=== PATIENT | male | born 1995 | race Caucasian/White ===

== ENCOUNTER 2017-07-12 21:30 | Emergency (ER) | payer OTHER ==
[~2017-07-12] VITALS: Ht 188 cm; Wt 68.0 kg
--- NOTE | ~2017-07-12 | EKG ---
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
[~2017-07-12 21:30] MED LIST: AUGMENTIN 875875 MG PO; IBUPROFEN 800800 MG PO
[2017-07-12 21:32] VITALS: BP 141/81
== END 2017-07-12 21:51 | disposition home or self-care (01) ==
LOC: ER 21:30
DX: F15.10 Other stimulant abuse, uncomplicated (principal)

== ENCOUNTER 2018-10-17 14:56 | Emergency (ER) | payer OTHER ==
[~2018-10-17] VITALS: Ht 190.5 cm; Wt 68.0 kg
[2018-10-17] MEDS ORDERED: PROZAC20 MG PO (16:24)
[2018-10-17 17:05] VITALS: BP 108/74
[2018-10-23] MEDS ORDERED: PROZAC20 MG PO (13:50)
== END 2018-10-17 17:06 | disposition home or self-care (01) ==
LOC: ER 14:56
DX: I72.8 Aneurysm of other specified arteries (principal); F17.210 Nicotine dependence, cigarettes, uncomplicated

== ENCOUNTER 2018-11-02 05:27 | Day surgery (SDC) | payer OTHER ==
[2018-10-24 10:22] LABS: ABSOLUTE NEUTROPHILS 6.1 thou/uL (1.4-8.2); BASOPHILS 0.7 % (0.0-2.0); HEMATOCRIT 46.7 % (42.0-52.0); HEMOGLOBIN 16.1 gm/dL (14.0-18.0); LYMPHOCYTES 19.6 % (24.0-44.0); MCHC 34.5 g/dL (28.0-37.0); MCV 86.9 fL (80.0-100.0); MONOCYTES 9.1 % (1.0-8.0); PLATELET COUNT 305 thou/uL (150-400); POLYS 69.6 % (36.0-66.0); RBC 5.38 mil/uL (4.50-6.00); RDW 13.3 % (10.5-14.5); WBC 8.8 thou/uL (4.0-11.0)
[2018-10-24 10:25] LABS: URINE BILIRUBIN NEGATIVE (Negative); URINE BLOOD NEGATIVE (Negative); URINE CLARITY CLEAR; URINE COLOR YELLOW; URINE GLUCOSE-RANDOM* NEGATIVE (Negative); URINE KETONES NEGATIVE (Negative); URINE LEUKOCYTES-REFLEX NEGATIVE (Negative); URINE NITRITE-REFLEX NEGATIVE (Negative); URINE PROTEIN (DIPSTICK) NEGATIVE (Negative); URINE UROBILINOGEN 0.2 E.U./dl (0.2-1.0)
[2018-10-24 10:36] LABS: APTT 40.2 Seconds (24.5-32.8); PROTIME 10.2 Seconds (9.3-11.4)
[2018-10-24 10:43] LABS: ALBUMIN 4.3 g/dL (3.4-5.0); CALCIUM 10.7 mg/dL (8.5-10.1); CREATININE 0.9 mg/dL (0.7-1.3); POTASSIUM 4.4 mmol/L (3.5-5.1); TOTAL BILIRUBIN 0.4 mg/dL (<0.1-1.0); TOTAL PROTEIN 8.4 g/dL (6.4-8.2)
[2018-10-24 17:10] LABS: HAV IgM AB (ANTI-HAV IgM) Negative (Negative); HEPATITIS B SURFACE AG Negative (Negative); HEPATITIS C VIRUS AB <0.1 (0.0-0.9); HIV ANTIBODY Non Reactive (Non Reactive)
--- NOTE | 2018-10-24 17:30 | EKG ---
[address] [address] [address] [address] [address] ELECTROCARDIOGRAM REPORT Name: BREEZY MORALES Room #: PRE [facility]..#: [id number] ������������������ Admission: ������������������ Attend Phys: Zen Sal MD Discharge: ������������������ Date of : [birth year] Report #: [id number] ����������������������������������������������������������������� [id number] THIS REPORT FOR: //name// [facility] Test Date: 2018-10-24 Test Time: 10:07:44 Pat Name: BREEZY MORALES Department: Room: Gender: M Lofter: SEAN BOWENS : 1995 Requested By: Zen Sal Order Number: [id number] MD: Neto Morales Measurements Intervals [place] Rate: 70 P: 49 MN: 150 QRS: 72 QRSD: 93 T: 50 QT: 384 QTc: 415 Interpretive Statements Sinus rhythm ST elevation suggests early repolarization Compared to ECG 07/12/2017 21:41:34 No significant changes Electronically Signed On 10-24-2018 17:29:56 PHYSICAL THERAPY AID by Neto Morales [email or web address] ��������������������������������������������� <ELECTRONICALLY SIGNED> ���������������������������������������� By: Neto Morales MD, [facility] ��������������������������������������������� 10/24/18 1729 1007 [facility] Neto Morales MD, FACC /EPI
[~2018-11-02] VITALS: Ht 190.5 cm; Wt 67.1 kg
--- NOTE | ~2018-11-02 | O ---
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 OPERATION: Excision of posttraumatic temporal artery aneurysms (x2). SURGEON: Zen Sal MD ANESTHESIA: General. INDICATIONS: The patient is a 23-year-old who sustained blunt head trauma. The aftermath of this was that he had development of two distinct temporal artery aneurysms. These have been growing and bothersome to the patient and merit excision. FINDINGS AND TECHNIQUE: After general anesthesia was established, an incision was made over each of the temporal artery aneurysms. The aneurysms were dissected free of the soft tissue. The vessels feeding the aneurysm were ligated and the aneurysms were excised. Hemostasis was ascertained. A total of 2 aneurysms were removed from two separate incisions using the same technique. When hemostasis was satisfactory, each of the wounds was closed with subcuticular Monocryl. Dermabond was applied. The patient tolerated the procedure well and was taken to the recovery area with the expectation that he would be discharged when stable postanesthesia. ��������������������������������������������� ���������������������������������������� By: ��������������������������������������������� 1448 1918 Zen Sal MD /nt
[~2018-11-02 05:27] MED LIST changes: +PROZAC20 MG PO
[2018-11-02 06:32] VITALS: BP 117/71
[2018-11-02 09:36] VITALS: BP 117/71
== END 2018-11-02 10:25 | disposition home or self-care (01) ==
LOC: OR 05:27 → TBA 05:28 → OR 05:35
PROVIDERS: Surgery Vascular Surgery
DX: I72.8 Aneurysm of other specified arteries (principal); F32.9 Major depressive disorder, single episode, unspecified; F17.210 Nicotine dependence, cigarettes, uncomplicated; F15.20 Other stimulant dependence, uncomplicated; Z98.890 Other specified postprocedural states; Z79.899 Other long term (current) drug therapy; Z79.01 Long term (current) use of anticoagulants
CPT/HCPCS: 48888; 50010; 50101; 50386; 50417; 54118; 56524; 56526; 62110; 62900; 65040; 70005

== ENCOUNTER 2020-08-25 19:23 | Emergency (ER) | payer OTHER ==
[~2020-08-25] VITALS: Ht 190.5 cm; Wt 63.5 kg
[2020-08-25 19:27] VITALS: BP 139/74
--- NOTE | 2020-08-26 07:31 | EKG ---
[place] [address] [address] 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 : 1995 Requested By: Jose Hameed Order Number: [id number] MD: Gordon Ortega Measurements Intervals [place] Rate: 101 P: 78 MT: 158 QRS: 86 QRSD: 89 T: 53 QT: 331 QTc: 429 Interpretive Statements Sinus tachycardia J Point elevation precordail leads Compared to ECG 10/24/2018 10:07:44 Sinus rhythm no longer present Early repolarization no longer present ST (T wave) deviation still present Electronically Signed On 08-26-2020 7:31:01 BLOOD BANK ORDER CONTROL CLERK by Gordon Ortega [email or web address] <ELECTRONICALLY SIGNED> By: Gordon Ortega MD, [facility] 08/26/20 0731 34 34 Gordon Ortega MD, FAC /EPI
== END 2020-08-25 20:38 | disposition home or self-care (01) ==
LOC: ER 19:23
DX: R00.2 Palpitations (principal); F19.90 Other psychoactive substance use, unspecified, uncomplicated; Z90.89 Acquired absence of other organs